=== PATIENT | male | born 2000 | race Caucasian/White ===

== ENCOUNTER 2018-04-13 15:43 | Emergency (ER) | payer OTHER ==
[~2018-04-13] VITALS: Ht 175.3 cm; Wt 95.4 kg
[2018-04-13 15:55] VITALS: BP 141/74
[2018-04-13 18:20] VITALS: BP 133/64
== END 2018-04-13 18:20 | disposition home or self-care (01) ==
LOC: MED 15:43
DX: R51 Headache (principal)
CPT/HCPCS: 70450; 99284

== ENCOUNTER 2018-05-30 23:47 | Emergency (ER) | payer OTHER ==
[~2018-05-30] VITALS: Ht 177.8 cm; Wt 97.5 kg
[2018-05-30 23:50] VITALS: BP 150/96
[2018-05-30] MEDS ORDERED: NACL 0.9% 1,000 ML IV ONE (23:50)
[2018-05-31 03:00] LABS: BARBITURATE, URINE NEG. ng/ml (NEG <=200); BENZODIAZEPINE, URINE NEG. ng/mL (NEG <=200); CANNABINOID, URINE POS. ng/mL (NEG <=50); COCAINE, URINE NEG. ng/mL (NEG <=300); OPIATE, URINE NEG. ng/mL (NEG <=2000); PHENCYCLIDINE SCREEN,URINE NEG. ng/mL (NEG <=25)
[2018-05-31] MEDS ORDERED: NACL 0.9% 1,000 ML IV ONE (03:35)
[2018-05-31 05:43] VITALS: BP 143/56
== END 2018-05-31 05:43 | disposition home or self-care (01) ==
LOC: MED 23:47
DX: F12.10 Cannabis abuse, uncomplicated (principal)
CPT/HCPCS: 80305; 93005; 99284; J7030